=== PATIENT | female | born 1990 | race Caucasian/White ===

== ENCOUNTER 2023-10-21 15:30 | Emergency (ER) | payer MEDICAID, SELFPAY ==
[2023-10-21 15:31] VITALS: BP 127/84; PULSE 65; RESP 16; TEMP 36.8; O2SAT 97; BMI 33.3
[2023-10-21 15:35] VITALS: BP 127/84; PULSE 64; O2SAT 97
--- NOTE | 2023-10-21 15:57 | HMH.EDGENADL ---
Discharge Plan Disposition Patient Disposition: Home, Self-Care Referrals Follow up/Referrals: Jhon Connell [Primary Care Provider] - See instructions Activity Restrictions/Add. Instructions Additional Instructions/Restrictions: Please have your sutures removed within 7 to 10 days to prevent scar formation. They are absorbable sutures but if they are still intact within that time. Please return to have your sutures removed. Watch for spreading redness pus coming from the wound or other concerns. Clinical Impressions Clinical Impression: Laceration of lip Instructions Patient Instructions: DI for Laceration Repair Discharge ED Provider: Percy Cotto General Adult HPI General Chief complaint: Wound/Laceration Stated complaint: AO laceration to left side upper lip Time Seen by Provider: 10/21/23 15:53 Mode of Arrival: Ambulatory Source of Information: Patient Limitations: No Limitations Description of Symptoms (Recalled from ER Triage Doc. by RN): Presents to ED with c/o laceration to her left upper lip. Patient states she was getting boxes out of the attic and had a large box fall and hit her lip. Denies meds SAND CARRIER. Bleeding controlled SAND CARRIER. History of Present Illness HPI narrative: Patient is a 32-year-old female present today with a lip laceration. States she was moving yesterday and a box struck her in the lip happened yesterday evening. She thought that it was adequately controlled and that there was a clot over top of it but when the clot was removed there is a gaping wound which brought in the emergency department. Denies any injuries elsewhere. Denies any other head injuries loss of consciousness etc. [facility] Disclaimer: The information contained in this section may have been updated after the patient was seen, as this information can be updated by other users. Social History Smoking Status: Current every day smoker alcohol intake: never current occupational status: other Travel in the last 8 weeks: None ROS Obtained: Yes All systems reviewed & no additional complaints except as documented Physical Exam General General appearance: alert Expanded ENT Exam Nose/Mouth Image: 1. gaping laceration, no amaya border involvement Respiratory Respiratory exam: Present normal lung sounds bilaterally Cardiovascular Cardiovascular exam: Present regular rate Neurological Exam Neurological exam: Present alert Medical Decision Making Joe Inquiry Pt receiving controlled substance: No Vital Signs: 10/21/23 15:31 10/21/23 15:35 Temperature 98.2 F Temperature Source Oral Pulse Rate 64 Pulse Rate [Right] 65 Respiratory Rate 16 Blood Pressure 127/84 Blood Pressure [Right Arm] 127/84 Blood Pressure Mean [Right Arm] 98 02 Sat by Pulse Oximetry 97 97 Oxygen Delivery Method Room Air Medical Decision Narrative: Patient is a 32-year-old female with a gaping laceration to her lip that occurred yesterday evening. There is some tissue that is clotted off and that likely will need to be debrided. She understands that the timing of this is suboptimal and that there may be some nonunion of the tissue however will debride partial healing tissue to try to maximize the cosmetic outcome from this. We will close this primarily we will give her return precautions. Wound was very irregular with gaping margins that had already begun to heal and there was also irregular flaps that needed to be revised and debrided. She is aware that there may be significant scar formation from this repair. Vicryl sutures were placed and she was advised to have them taken out in 7 to 10 days if they are not absorbed. She was discharged in improved and stable condition. Procedures Laceration Laceration 1: Site: lip Side (If applicable): left Size (cm): 3 Description: flap and irregular Depth: simple, single layer and involves subcutaneous layer Local Anesthetic: nancy
[2023-10-21 17:23] VITALS: BP 117/73; PULSE 71; RESP 15; TEMP 36.8; O2SAT 97
== END 2023-10-21 17:24 | disposition home or self-care (01) ==
PROVIDERS: Emergency Provider Student in an Organized Health Care Education/Training Program; PCP Pediatrics
DX: S01.511A Laceration without foreign body of lip, initial encounter (principal); W22.8XXA Striking against or struck by other objects, initial encounter; F17.200 Nicotine dependence, unspecified, uncomplicated
CPT/HCPCS: 12013; 99282

== ENCOUNTER 2023-10-29 12:15 | Emergency (ER) | payer MEDICAID, SELFPAY ==
--- OUTSIDE RECORDS SUMMARY | 2023-10-29 12:28 | XMS_ITS | Continuity of Care Document ---
Author Name Unknown Address [address] [place], [place] [id number] Organization [facility] Phone Care Team Providers Care Human Insights Lead Ads Marketing Name Role Phone ISABELLA LEIJA Unavailable ISABELLA LEIJA Admitting EMMETT OLGUIN Primary Care ISABELLA LEIJA Primary Attending ALLERGIES AND ADVERSE REACTIONS ALLERGIES AND ADVERSE REACTIONS Code System Allergy Substance Adverse Reaction Date Reaction (Severity) Comment Status Reported By Updated By No Known Allergies [email or web address] on October 09, 2023 4:14:21 PM UTC RESULTS Patient: JESI NAJERA Date of : November 29 0 LABORATORY RESULTS ORDER 100: SARS-COV-2 TRIPP IN HOUSE (LOINC: 10978-8) ORDER DATE: October 09, 2023 4:10:00 PM UTC Specimen Source: Nasopharyng eal PERFORMING LAB: [address] [id number] Result Comment: Final Result Date: October 09, 2023 5:07:00 PM UTC (TECH: HC) LOINC TEST FLAG [place] [address]-2 SARS-CoV-2 (COVID-19) RNA [Presence] in Respiratory specimen by COOPER with probe detection N NEGATIVE NEGATIVE October 09, 2023 5:07:00 PM UTC (TECH: HC) ORDER 200: INFLUENZA A/B SCR EEN (LOINC: 46356-7) ORDER DATE: October 09, 2023 4:10:00 PM UTC Specimen Source: Swab PERFORMING LAB: [address]
--- OUTSIDE RECORDS SUMMARY | 2023-10-29 12:28 | XMS_ITS | Continuity of Care Document ---
Author Name Unknown Address [address] [place], [place] [id number] Organization [facility] Phone Care Team Providers Care Transfer Station Attendant Name Role Phone ALIVIA PA Primary Attending Unavailable ALIVIA PA Unavailable Unavailable EMMETT OLGUIN Primary Care ALIVIA PA Admitting Unavailable ALLERGIES AND ADVERSE REACTIONS ALLERGIES AND ADVERSE REACTIONS Code System Allergy Substance Adverse Reaction Date Reaction (Severity) Comment Status Reported By Updated By No Known Allergies [email or web address] on October 16, 2023 11:56:59 PM UTC RESULTS Patient: JESI NAJERA Date of : November 29 0 LABORATORY RESULTS ORDER 100: UA AND MICRO/CULT IF INDICATED (LOINC: 56180-4) ORDER DATE: October 16, 2023 11:54:00 PM UTC Specimen Source: URINE PERFORMING LAB: [address] [id number] Result Comment: Final Result Date: October 17, 2023 12:30:00 AM UTC (TECH: HC) LOINC TEST FLAG RESULT REFERENCE RANGE [place] BY 5778-6 Color of Urine N yellow YELLOW Novem 2022 12:30:00 AM UTC (TECH: HC) 5767-9 Appearance of Urine N clear CLEAR October 17, 2023 12:30:00 AM UTC (TECH: HC) 5792-7 Glucose [Mass/volume] in Urine by Test strip N NORM NORMAL October 17, 2023 12:30:00 AM UTC (TECH: HC) 06154-0 B
--- OUTSIDE RECORDS SUMMARY | 2023-10-29 12:28 | XMS_ITS | Continuity of Care Document ---
Author Name Unknown Address [address] [place], [place] [id number] Organization [facility] Phone Care Team Providers Care Paper Machine Operator Name Role Phone ALIVIA AP Primary Attending Unavailable ALIVIA PA Unavailable Unavailable EMMETT OLGUIN Primary Care ALIVIA PA Admitting Unavailable ALLERGIES AND ADVERSE REACTIONS ALLERGIES AND ADVERSE REACTIONS Code System Allergy Substance Adverse Reaction Date Reaction (Severity) Comment Status Reported By Updated By No Known Allergies [email or web address] on October 16, 2023 11:56:59 PM UTC RESULTS Patient: JESI NAJERA Date of : November 29 0 LABORATORY RESULTS ORDER 100: UA AND MICRO/CULT IF INDICATED (LOINC: [id number]) ORDER DATE: October 16, 2023 11:54:00 PM UTC Specimen Source: URINE PERFORMING LAB: [address] [id number] Result Comment: Final Result Date: October 17, [...] 17, 2023 12:30:00 AM UTC (TECH: HC) 78628-2 B
--- OUTSIDE RECORDS SUMMARY | 2023-10-29 12:28 | XMS_ITS | Continuity of Care Document ---
Author Name Unknown Address [address] [place], [place] [id number] Organization [facility] Phone Care Team Providers Care Striper Spray Gun Name Role Phone ISABELLA LEIJA Unavailable ISABELLA LEIJA Admitting EMMETT OLGUIN Primary Care ISABELLA LEIJA Primary Attending ALLERGIES AND ADVERSE REACTIONS ALLERGIES AND ADVERSE REACTIONS Code System Allergy Substance Adverse Reaction Date Reaction (Severity) Comment Status Reported By Updated By No Known Allergies [email or web address] on October 09, 2023 4:14:21 PM UTC RESULTS Patient: JESI NAJERA Date of : November 29 0 LABORATORY RESULTS ORDER 100: SARS-COV-2 TRIPP IN HOUSE (LOINC: 58523-9) ORDER DATE: October 09, 2023 4:10:00 PM UTC Specimen Source: Nasopharyng eal PERFORMING LAB: [address] [id number] Result Comment: Final Result Date: October 09, 2023 5:07:00 PM UTC (TECH: HC) LOINC TEST FLAG [place] [address]-3 SARS-CoV-2 (COVID-19) RNA [Presence] in Respiratory specimen by COOPER with probe detection N NEGATIVE NEGATIVE October 09, 2023 5:07:00 PM UTC (TECH: HC) ORDER 200: INFLUENZA A/B SCR EEN (LOINC: 53844-8) ORDER DATE: October 09, 2023 4:10:00 PM UTC Specimen Source: Swab PERFORMING LAB: [address]
--- OUTSIDE RECORDS SUMMARY | 2023-10-29 12:28 | XMS_ITS | Continuity of Care Document ---
Author Name Unknown Address [address] [place], [place] [id number] Organization [facility] Phone Care Team Providers Care Skin Toggler Name Role Phone ALIVIA PA Primary Attending Unavailable ALIVIA PA Unavailable Unavailable EMMETT OLGUIN Primary Care ALIVIA PA Admitting Unavailable ALLERGIES AND ADVERSE REACTIONS ALLERGIES AND ADVERSE REACTIONS Code System Allergy Substance Adverse Reaction Date Reaction (Severity) Comment Status Reported By Updated By No Known Allergies [email or web address] on October 16, 2023 11:56:59 PM UTC RESULTS Patient: JESI NAJERA Date of : November 29 0 LABORATORY RESULTS ORDER 100: UA AND MICRO/CULT IF INDICATED (LOINC: 73968-7) ORDER DATE: October 16, 2023 11:54:00 PM UTC Specimen Source: URINE PERFORMING LAB: [address] [id number] Result Comment: Final Result Date: October 17, [...] 17, 2023 12:30:00 AM UTC (TECH: HC) 46134-4 B
--- OUTSIDE RECORDS SUMMARY | 2023-10-29 12:28 | XMS_ITS | Continuity of Care Document ---
Author Name Unknown Address [address] [place], [place] [id number] Organization [facility] Phone Care Team Providers Care Automation Controls Expert Name Role Phone ISABELLA LEIJA Unavailable ISABELLA LEIJA Admitting EMMETT OLGUIN Primary Care ISABELLA LEIJA Primary Attending ALLERGIES AND ADVERSE REACTIONS ALLERGIES AND ADVERSE REACTIONS Code System Allergy Substance Adverse Reaction Date Reaction (Severity) Comment Status Reported By Updated By No Known Allergies [email or web address] on October 09, 2023 4:14:21 PM UTC RESULTS Patient: JESI NAJERA Date of : November 29 0 LABORATORY RESULTS ORDER 100: SARS-COV-2 TRIPP IN HOUSE (LOINC: 94117-1) ORDER DATE: October 09, 2023 4:10:00 PM UTC Specimen Source: Nasopharyng eal PERFORMING LAB: [address] [id number] Result Comment: Final Result Date: October 09, 2023 5:07:00 PM UTC (TECH: HC) LOINC TEST FLAG [place] [address]-5 SARS-CoV-2 (COVID-19) RNA [Presence] in Respiratory specimen by COOPER with probe detection N NEGATIVE NEGATIVE October 09, 2023 5:07:00 PM UTC (TECH: HC) ORDER 200: INFLUENZA A/B SCR EEN (LOINC: 39553-7) ORDER DATE: October 09, 2023 4:10:00 PM UTC Specimen Source: Swab PERFORMING LAB: [address]
[2023-10-29 13:33] VITALS: BP 140/88; PULSE 64; RESP 18; TEMP 36.6; O2SAT 100; BMI 33.3
[2023-10-29 14:00] VITALS: BP 140/88; PULSE 64; RESP 18; TEMP 36.6; O2SAT 100
== END 2023-10-29 13:59 | disposition home or self-care (01) ==
PROVIDERS: Emergency Provider Nurse Practitioner Family; PCP Family Medicine
DX: Z48.02 Encounter for removal of sutures (principal)